=== PATIENT | female | born 1935 | race Caucasian/White ===

== ENCOUNTER 2017-10-21 17:10 | Inpatient (IN) | payer OTHER, SELFPAY ==
[~2017-10-21] VITALS: Ht 162.6 cm; Wt 79.1 kg
[~2017-10-21 17:10] MED LIST: ALLO100 PO; AMLO10 PO; ASPI81CH PO; ATOR40TA PO; CARV6.25 PO; CHOL10002 PO; COLCRYS0.6 MG PO; CYAN1000 PO; Carvedilol12.5 MG PO; NAPR500 PO; Norco 5-325 Ta1 EACH PO; PREG75 PO; Robaxin500 MG PO; TRAM50 PO; TRIHYD5075 PO; VITAMIN B122500 MCG PO
[2017-10-21 19:32] LABS: Troponin I <0.015 ng/mL (0.000-0.040)
[2017-10-21 20:41] LABS: Free Thyroxine 1.34 ng/dL (0.70-1.60)
[2017-10-21 20:43] LABS: Triiodothyronine, Free 2.48 pg/mL (2.18-3.98)
[2017-10-21 22:50] LABS: U Amphetamine Screen Not Detected; U Barbituate Screen Not Detected; U Benzodiazapine Screen Not Detected; U Buprenorphine Screen Not Detected; U Cannabinoids Screen Not Detected; U Cocaine Screen Not Detected; U Methadone Screen Not Detected; U Methamphetamine Screen Not Detected; U Opiates Screen Not Detected; U Oxycodone Screen Not Detected; U Phencyclidine Screen Not Detected; U Propoxyphene Screen Not Detected
[2017-10-22 02:38] LABS: BASOPHILS ABSOLUTE AUTO 0.02 K/mm3 (0.00-0.23); BASOPHILS PERCENT AUTO 0 % (0-2); EOSINOPHILS ABSOLUTE AUTO 0.07 K/mm3 (0.00-0.68); EOSINOPHILS PERCENT AUTO 1 % (0-6); Hematocrit 36.5 % (33.0-51.0); Hemoglobin 11.7 g/dL (11.5-16.0); IMMATURE GRAN ABSOLUTE AUTO 0.01 K/mm3 (0.00-0.10); IMMATURE GRAN PERCENT AUTO 0 % (0-1); LYMPHOCYTES ABSOLUTE AUTO 1.19 K/mm3 (0.84-5.20); LYMPHOCYTES PERCENT AUTO 18 % (21-46); MONOCYTES ABSOLUTE AUTO 0.44 K/mm3 (0.16-1.47); MONOCYTES PERCENT AUTO 7 % (4-13); Mean Corpuscular HGB 28.1 pg (26.0-34.0); Mean Corpuscular HGB Conc 32.1 g/dL (31.5-36.5); Mean Corpuscular Volume 88 fL (80-100); NEUTROPHILS ABSOLUTE AUTO 4.89 K/mm3 (1.96-9.15); NEUTROPHILS PERCENT AUTO 74 % (41-73); Platelet Count 189 K/mm3 (150-400); RDW Coefficient Variation 13.4 % (11.7-14.2); Red Blood Cell Count 4.17 M/mm3 (3.80-5.20); White Blood Cell Count 6.62 K/mm3 (4.00-11.30)
[2017-10-22 02:55] LABS: Anion Gap 8 mmol/L (6-16); Blood Urea Nitrogen 22 mg/dL (8-24); Bun/Creatinine Ratio 15.6 (12.0-20.0); CO2, Blood 29 mmol/L (21-32); Calcium, Blood 8.6 mg/dL (8.5-10.1); Chloride, Blood 108 mmol/L (98-108); Cholesterol 112 mg/dL (50-200); Creatinine, Blood 1.41 mg/dL (0.40-1.00); Glomerular Filtration Rate 38 (60-); Glucose, Blood 142 mg/dL (70-99); HDL Cholesterol 57 mg/dL (>39); LDL/HDL RATIO 0.6; Low Density Lipoprotein Chol 35 mg/dL (0-110); Phosphorus, Blood 3.7 mg/dL (2.5-4.9); Potassium, Blood 3.3 mmol/L (3.5-5.5); Sodium, Blood 145 mmol/L (136-145); Triglycerides 98 mg/dL (30-160); Very Low Density Lipoprot Chol 19 mg/dL (6-32)
[2017-10-23 05:22] LABS: Bun/Creatinine Ratio 16.4 (12.0-20.0); Calcium, Blood 8.5 mg/dL (8.5-10.1); Creatinine, Blood 1.52 mg/dL (0.40-1.00); Potassium, Blood 3.2 mmol/L (3.5-5.5)
[2017-10-23] MEDS ORDERED: FURO20 PO (14:08)
== END 2017-10-23 15:23 | disposition home or self-care (01) | DRG 304 ==
LOC: ER 17:10 → ICUE 20:04 → ICUW 20:04 → ICUE 20:55 → MEDS 10-22 18:30 → ENPENDDIS 10-23 12:00 → MEDS 10-23 15:23
PROVIDERS: Emergency Medicine; Family Medicine; Internal Medicine
DX: I16.1 Hypertensive emergency (principal); I50.31 Acute diastolic (congestive) heart failure; G62.9 Polyneuropathy, unspecified; I24.8 Other forms of acute ischemic heart disease; I11.0 Hypertensive heart disease with heart failure; E78.5 Hyperlipidemia, unspecified; E87.6 Hypokalemia; N28.9 Disorder of kidney and ureter, unspecified; Z87.891 Personal history of nicotine dependence; Z88.2 Allergy status to sulfonamides; Z88.8 Allergy status to other drugs, medicaments and biological substances; Z79.82 Long term (current) use of aspirin; Z79.899 Other long term (current) drug therapy
CPT/HCPCS: 36415; 71046; 80048; 80053; 80061; 80069; 82533; 82570; 83880; 84439; 84443; 84481; 84484; 84585; 85025; 85651; 93005; 93010; 93306; 94760; 96374; 99285; J0360; J1940

== ENCOUNTER → 2018-10-17 | Outpatient (CLI) | payer OTHER ==
[~2018-10-17] MED LIST changes: +FURO20 PO
[2018-10-17 17:59] LABS: Creatinine Urine 59.3 mg/dL (27.00-270.00)
[2018-10-17 18:32] LABS: Protein, Urine Quantitative 80.3 mg/dL (0.0-11.9)
== END | disposition home or self-care (01) ==
LOC: LAB SHORT 13:41 → LAB 13:41
PROVIDERS: Internal Medicine Nephrology
DX: N18.3 Chronic kidney disease, stage 3 (moderate) (principal); D63.1 Anemia in chronic kidney disease; R80.9 Proteinuria, unspecified
CPT/HCPCS: 81050; 82043; 82570; 84156

== ENCOUNTER → 2019-03-17 | Outpatient (CLI) | payer OTHER ==
[2019-03-17 19:16] LABS: Creatinine Urine 71.3 mg/dL (27.00-270.00); Protein, Urine Quantitative 51.4 mg/dL (0.0-11.9)
[2019-03-17 19:20] LABS: Creatinine, Urine Random 72.6 mg/dL (27.00-270.00)
[2019-03-17 19:23] LABS: Microalb/Creat Ratio UR, Rand 424.242 mg/g (0.000-30.000)
== END | disposition home or self-care (01) ==
LOC: LAB 16:29 → LAB SHORT 16:29
PROVIDERS: Internal Medicine Nephrology
DX: N18.3 Chronic kidney disease, stage 3 (moderate) (principal); D63.1 Anemia in chronic kidney disease; R80.9 Proteinuria, unspecified
CPT/HCPCS: 81050; 82043; 82570; 84156

== ENCOUNTER 2021-11-17 13:00 | Inpatient (IN) | payer OTHER ==
[~2021-11-17] VITALS: Ht 162.6 cm; Wt 68.0 kg
[2021-11-17 14:03] LABS: BASOPHILS ABSOLUTE AUTO 0.08 K/mm3 (0.00-0.23); BASOPHILS PERCENT AUTO 1 % (0-2); EOSINOPHILS ABSOLUTE AUTO 0.03 K/mm3 (0.00-0.68); EOSINOPHILS PERCENT AUTO 0 % (0-6); Hematocrit 40.7 % (33.0-51.0); Hemoglobin 12.8 g/dL (11.5-16.0); IMMATURE GRAN ABSOLUTE AUTO 0.05 K/mm3 (0.00-0.10); IMMATURE GRAN PERCENT AUTO 0 % (0-1); LYMPHOCYTES ABSOLUTE AUTO 1.48 K/mm3 (0.84-5.20); LYMPHOCYTES PERCENT AUTO 11 % (21-46); MONOCYTES ABSOLUTE AUTO 1.27 K/mm3 (0.16-1.47); MONOCYTES PERCENT AUTO 10 % (4-13); Mean Corpuscular HGB 26.9 pg (26.0-34.0); Mean Corpuscular HGB Conc 31.4 g/dL (31.5-36.5); Mean Corpuscular Volume 86 fL (80-100); Mean Platelet Volume 11.4 fL (9.1-12.4); NEUTROPHILS PERCENT AUTO 78 % (41-73); Platelet Count 273 K/mm3 (150-400); RDW Coefficient Variation 14.5 % (11.7-14.2); RDW Standard Deviation 45.9 fL (35.1-46.3); Red Blood Cell Count 4.75 M/mm3 (3.80-5.20); White Blood Cell Count 13.21 K/mm3 (4.00-11.30)
[2021-11-17 14:15] LABS: Albumin, Blood 3.8 g/dL (3.4-5.0); Bilirubin, Total 0.8 mg/dL (0.1-1.0); Creatinine, Blood 2.07 mg/dL (0.40-1.00); Globulin, Blood 3.8 g/dL (2.2-4.0); Potassium, Blood 4.7 mmol/L (3.5-5.5); Total Protein, Blood 7.6 g/dL (6.4-8.2)
[2021-11-17] MEDS ORDERED: AMLO10 PO (16:26)
[2021-11-17] MEDS ORDERED: ASPIR 8181 M1 PO (16:27)
[2021-11-17] MEDS ORDERED: ATOR10 PO (16:28)
[2021-11-17] MEDS ORDERED: COREG25 MG PO (16:29)
[2021-11-17] MEDS ORDERED: FURO20 PO (16:30)
[2021-11-17] MEDS ORDERED: LOSARTAN POTAS100 M1 PO (16:32)
[2021-11-17] MEDS ORDERED: LYRICA150 M1 PO (16:33)
--- NOTE | 2021-11-17 18:53 | NUR ---
SHIFT SUMMARY; PATIENT ARRIVED TO MED FLOOR APPROX 1700 TODAY. SHE IS AO X 4. ON 4 LITERS O2. COVID 19 POSITIVE. PATIENT HAS TWO IV'S AND ARE BOTH SALINE LOCKED. SHE AMBULATES WITHOUIT ASSIST TO BATHROOM. WILL REMAIN AVAILABLE FOR THIS PATIENT FOR ANY WANTS OR NEEDS PRIOR TO SHIFT CHANGE.
[2021-11-18 04:50] LABS: BASOPHILS ABSOLUTE AUTO 0.01 K/mm3 (0.00-0.23); BASOPHILS PERCENT AUTO 0 % (0-2); EOSINOPHILS PERCENT AUTO 0 % (0-6); Hematocrit 34.7 % (33.0-51.0); Hemoglobin 11.1 g/dL (11.5-16.0); IMMATURE GRAN ABSOLUTE AUTO 0.02 K/mm3 (0.00-0.10); IMMATURE GRAN PERCENT AUTO 0 % (0-1); LYMPHOCYTES PERCENT AUTO 14 % (21-46); MONOCYTES ABSOLUTE AUTO 0.19 K/mm3 (0.16-1.47); MONOCYTES PERCENT AUTO 4 % (4-13); Mean Corpuscular HGB 27.7 pg (26.0-34.0); Mean Corpuscular Volume 87 fL (80-100); Mean Platelet Volume 11.3 fL (9.1-12.4); NEUTROPHILS ABSOLUTE AUTO 4.21 K/mm3 (1.96-9.15); NEUTROPHILS PERCENT AUTO 82 % (41-73); Platelet Count 185 K/mm3 (150-400); RDW Coefficient Variation 14.3 % (11.7-14.2); RDW Standard Deviation 45.9 fL (35.1-46.3); Red Blood Cell Count 4.01 M/mm3 (3.80-5.20); White Blood Cell Count 5.13 K/mm3 (4.00-11.30)
--- NOTE | 2021-11-18 05:19 | NUR ---
SHIFT SUMMARY 86 YRF ADMITTED ON 11/17/21 FOR COVID. PT PRESENTED TO ED FOR SOB AND THE TESTED POSITIVE FOR COVID. SHE STATED THAT SHE HAS NEVER HAD TROUBLE BREATHING BEFORE BUT W/ 4 L ON NC SHE IS NO LONGER HAVING DIFFICULTY BREATHING. SHE STATES SHE FEELS FINE OTHER THAN THAT. SHE HAS SLEPT MOST OF THISSHIFT AND THIS NURSE HAS HAD LITTLE INTERACTION WITH HER. SHE IS PLEASANT AND COOPERATIVE AND USES THE CALL LIGHT APPROPRIATELY.
[2021-11-18 05:20] LABS: Albumin, Blood 2.9 g/dL (3.4-5.0); Albumin/Globulin Ratio 0.9 (0.8-1.8); Bilirubin, Total 0.5 mg/dL (0.1-1.0); Bun/Creatinine Ratio 15.2 (12.0-20.0); Calcium, Blood 9.2 mg/dL (8.5-10.1); Creatinine, Blood 2.17 mg/dL (0.40-1.00); Globulin, Blood 3.2 g/dL (2.2-4.0); Phosphorus, Blood 4.2 mg/dL (2.5-4.9); Potassium, Blood 4.7 mmol/L (3.5-5.5); Total Protein, Blood 6.1 g/dL (6.4-8.2)
--- NOTE | 2021-11-18 12:37 | NUR ---
Initial Interview with [facility] 1. Who did you speak with? Spoke with luda James. 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 2. What is the patient's prior level of functions? Patient lives independently and able to completed ADL's without assistance. Patient lives in a two story home, but mainly resides on the first floor. She has a couple of stairs at the entrance of the residence. Grandsons are presently visiting and will remain at the residence for a while to assist with needs. Patient is has a strong support network. Luda Arreaga assists her aunt whenever the needs arises. 3. Is the patient and/or family able to provide transportation to and from doctor's appointments and cone picker prescriptions? Patient has a [place] driver's license and owns a private vehicle 4. Does patient still drive? Yes 5. POA/PCP/NOK: NOK: Luda James [phone]/PCP [facility] Dr. Eladio Mendoza 6. Discharge goals: TBD: -DME: TBD -Medication Management: self-management -Preferred Pharmacy: [facility], [place] -Housekeeping need: patient able to cook and clean 7. List barriers to discharge: None known at this time 8. Discharge Plan: TBD 9. PCP Follow up appointment: Will be scheduled within seven calendar days of discharge 10. Other Notes: patient is not a .
--- NOTE | 2021-11-18 17:40 | NUR ---
SHIFT SUMMARY; PATIENT HAD NO ACUTE CHANGES IN CONDITION TODAY. SHE IS CURRENTLY ON 2 LITERS O2 VIA NASAL CANNULA. SHE DOES DESAT WHEN UP TO BATHROOM AND O2 IS TURNED TO 4 LITERS FOR AMBULATION. HER BLOOD PRESSURE IS ELEVATED OFF AND ON THROUGHOUT THE DAY AND IS MADE AWARE. NO NEW ORDERS RECEIVED. ORDER FOR ECHO IS RECIEVED AND NEW LABS FOR AM. FAMILY CALLS TO CHECK ON PAITENT AND THEY ARE GOING TO BE TAKING CARE OF PAITENT ON HER DISCHARGE AND WILL PICK HER UP.
--- NOTE | 2021-11-19 03:22 | NUR ---
SHIFT SUMMARY PATIENT HAD NO ACUTE CHANGES OBSERVED. AXOX 4 AND SBA TO BR. SOB W/EXERTION. ON 4L O2 NC. PIV REMAINS INTACT. DENIES CHEST PAIN, SOB, AND N/V. RT IN ROOM FOR BREATHING TX. VSS/AFEBRILE. COOPERATIVE WITH CARE. CALL LIGHT IN REACH. BED IN LOWEST POSITION. WILL CONTINUE TO MONITOR UNTIL DAY SHIFT NURSE ASSUMES CARE.
[2021-11-19 03:32] LABS: BASOPHILS PERCENT AUTO 0 % (0-2); EOSINOPHILS PERCENT AUTO 0 % (0-6); Hematocrit 33.6 % (33.0-51.0); Hemoglobin 10.5 g/dL (11.5-16.0); IMMATURE GRAN ABSOLUTE AUTO 0.03 K/mm3 (0.00-0.10); IMMATURE GRAN PERCENT AUTO 0 % (0-1); LYMPHOCYTES ABSOLUTE AUTO 0.71 K/mm3 (0.84-5.20); LYMPHOCYTES PERCENT AUTO 9 % (21-46); MONOCYTES ABSOLUTE AUTO 0.31 K/mm3 (0.16-1.47); MONOCYTES PERCENT AUTO 4 % (4-13); Mean Corpuscular HGB 27.1 pg (26.0-34.0); Mean Corpuscular HGB Conc 31.3 g/dL (31.5-36.5); Mean Corpuscular Volume 87 fL (80-100); Mean Platelet Volume 11.3 fL (9.1-12.4); NEUTROPHILS ABSOLUTE AUTO 7.08 K/mm3 (1.96-9.15); NEUTROPHILS PERCENT AUTO 87 % (41-73); Platelet Count 167 K/mm3 (150-400); RDW Coefficient Variation 14.4 % (11.7-14.2); RDW Standard Deviation 45.7 fL (35.1-46.3); Red Blood Cell Count 3.87 M/mm3 (3.80-5.20); White Blood Cell Count 8.13 K/mm3 (4.00-11.30)
[2021-11-19 04:01] LABS: Albumin, Blood 2.8 g/dL (3.4-5.0); Albumin/Globulin Ratio 0.9 (0.8-1.8); Bilirubin, Total 0.5 mg/dL (0.1-1.0); Bun/Creatinine Ratio 19.6 (12.0-20.0); C-REACTIVE PROTEIN, EXT RANGE 2.17 mg/dL (0.000-0.300); Calcium, Blood 9.1 mg/dL (8.5-10.1); Creatinine, Blood 2.3 mg/dL (0.40-1.00); Globulin, Blood 3.2 g/dL (2.2-4.0); Potassium, Blood 4.8 mmol/L (3.5-5.5)
--- NOTE | 2021-11-19 17:41 | NUR ---
PT REMAINS A/O X 4, INDEPENDENT IN HER ROOM, SHE IS REQUIRING OXYGEN AT 2LNC. HOME O2 EVAL CONDUCTED THIS AFTERNOON AND PT REQUIRES 2LNC CONTINUOUSLY, AT REST AND WITH EXCERTION. SHE IS A POSSIBLE/PROBABLE DISCHARGE TOMORROW AFTER NOON PER DR HAIR. PO HYDRALAZINE TID ADDED FOR ELEVATED BP. NO ACUTE CHANGES NOTED THIS SHIFT, WILL CONTINUE TO MONITOR AND REPORT TO ONCOMING RN.
--- NOTE | 2021-11-20 04:09 | NUR ---
SHIFT SUMMARY PATIENT HYPERTENSIVE 174/59 AT START OF SHIFT AND SCHEDULE HTN MEDS GIVEN. SECOND SET OF VITALS 147/49. AXOX 4 AND INDEPENDENT IN ROOM. ON 2L O2 NC. VSS/AFEBRILE. DENIES PAIN, SOB, AND N/V. COOPERATIVE WITH CARE. REPORTS POSSIBLE DC. CALL LIGHT IN REACH. BED IN LOWEST POSITION. WILL CONTINUE TO MONITOR UNTIL DAY SHIFT NURSE ASSUMES CARE.
[2021-11-20 06:36] LABS: BASOPHILS PERCENT AUTO 0 % (0-2); EOSINOPHILS PERCENT AUTO 0 % (0-6); Hematocrit 35.8 % (33.0-51.0); IMMATURE GRAN ABSOLUTE AUTO 0.04 K/mm3 (0.00-0.10); IMMATURE GRAN PERCENT AUTO 1 % (0-1); LYMPHOCYTES ABSOLUTE AUTO 0.99 K/mm3 (0.84-5.20); LYMPHOCYTES PERCENT AUTO 11 % (21-46); MONOCYTES ABSOLUTE AUTO 0.42 K/mm3 (0.16-1.47); MONOCYTES PERCENT AUTO 5 % (4-13); Mean Corpuscular HGB 26.8 pg (26.0-34.0); Mean Corpuscular HGB Conc 30.7 g/dL (31.5-36.5); Mean Corpuscular Volume 87 fL (80-100); Mean Platelet Volume 11.3 fL (9.1-12.4); NEUTROPHILS ABSOLUTE AUTO 7.41 K/mm3 (1.96-9.15); NEUTROPHILS PERCENT AUTO 84 % (41-73); Platelet Count 182 K/mm3 (150-400); RDW Coefficient Variation 14.3 % (11.7-14.2); RDW Standard Deviation 46.1 fL (35.1-46.3); White Blood Cell Count 8.86 K/mm3 (4.00-11.30)
[2021-11-20 07:01] LABS: Albumin, Blood 2.9 g/dL (3.4-5.0); Albumin/Globulin Ratio 0.9 (0.8-1.8); Bilirubin, Total 0.5 mg/dL (0.1-1.0); Bun/Creatinine Ratio 23.5 (12.0-20.0); Calcium, Blood 9.1 mg/dL (8.5-10.1); Creatinine, Blood 2.34 mg/dL (0.40-1.00); Globulin, Blood 3.3 g/dL (2.2-4.0); Potassium, Blood 4.7 mmol/L (3.5-5.5); Total Protein, Blood 6.2 g/dL (6.4-8.2)
--- NOTE | 2021-11-20 09:00 | NUR ---
pt laying in bed watching tv, Dr. Tipton in to see her, will be discharging her today, a/ox3, very [place], pleasant and cooperative with care, follows commands well, denies pain, lungs are dim t/o but has a harsh wet productive cough, currently on 2 liters 02 via n/c, resp even and unlabored, will be going home on 2 liters 02 per home 02 eval, hrr, no edema noted ppp+2, cap refill <3sec, vs stable, afebrile, iv site is clear and patent, btx4, abd flat soft nontender, voids without diff, skin frail but intact, maew, lon, call light in reach.
[2021-11-20] MEDS ORDERED: DECADRON6 M1 PO (09:45)
[2021-11-20] MEDS ORDERED: HYDR10 PO (09:47)
[2021-11-20] MEDS ORDERED: ALBU90OI6 INH (09:48)
[2021-11-20] MEDS ORDERED: AZIT500 PO (09:49)
[2021-11-20] MEDS ORDERED: AIRDUO RESPICL1 EAC4 INH (09:50)
--- NOTE | 2021-11-20 12:35 | NUR ---
pt has been discharged to home, family notified, o2 was ordered and delivered, iv removed intact, went over discharge instructions with pt, she verbalized understanding, new medications called into [facility]. call light in reach.
--- NOTE | 2021-11-20 13:30 | NUR ---
Pt has been dressed, ride is here to take her home. she has all her paperwork and belongings, left via wheelchair with custom studio coordinator in attendence.
--- NOTE | 2021-11-21 08:33 | NUR ---
Per Dr. Woodruff discharge appropriate. Patient and family do not oppose discharge. Patient is discharged home to residence. Date of discharge: 11/20/2021 Date of admission: 11/17/2021 Provisional diagnosis at time of admission: CHF Final Diagnosis at time of discharge: CHF Location: Patient is discharged home to his residence: [address] [place] [address] Dr. Leonie Prabhakar Transportation provided by: Family/luda James DME Ordered: Home Oxygen eval completed Sunday/Oxygen ordered on Sunday by RN Follow-ups needed: [facility] will contact patient to schedule hospital follow-up with PCP Dr. Eladio Mendoza MD Confirmed numbers: Luda James (best contact) Provider/PCP: Dr. Eladio Mendoza When: WITHIN 1 WEEK Specialty: N/A When: N/A Comment: No barriers to discharge. Patient has a strong support network.
== END 2021-11-20 13:35 | disposition home or self-care (01) | DRG 177 ==
LOC: ER 13:00 → MEDS 15:47
PROVIDERS: Hospitalist; Physician Assistant; ADMIT Family Medicine
PROC: 8E0ZXY6 Isolation (ICD-10-PCS; principal; 2021-11-17)
PROC: 3E0333Z Introduction of Anti-inflammatory into Peripheral Vein, Percutaneous Approach (ICD-10-PCS; 2021-11-17)
DX: U07.1 COVID-19 (principal); J12.82 Pneumonia due to coronavirus disease 2019; J96.01 Acute respiratory failure with hypoxia; Z66 Do not resuscitate; I13.0 Hypertensive heart and chronic kidney disease with heart failure and stage 1 through stage 4 chronic kidney disease, or unspecified chronic kidney disease; I24.8 Other forms of acute ischemic heart disease; N18.30 Chronic kidney disease, stage 3 unspecified; I50.9 Heart failure, unspecified; R73.03 Prediabetes; I73.9 Peripheral vascular disease, unspecified; G62.9 Polyneuropathy, unspecified; E78.5 Hyperlipidemia, unspecified; Z28.21 Immunization not carried out because of patient refusal; Z86.73 Personal history of transient ischemic attack (TIA), and cerebral infarction without residual deficits; Z90.49 Acquired absence of other specified parts of digestive tract; Z98.890 Other specified postprocedural states; Z88.2 Allergy status to sulfonamides; Z88.8 Allergy status to other drugs, medicaments and biological substances; Z79.82 Long term (current) use of aspirin; Z87.891 Personal history of nicotine dependence
CPT/HCPCS: 36415; 71045; 80053; 83605; 83735; 83880; 84100; 84145; 84484; 85025; 85651; 86140; 87040; 93005; 93010; 93306; 94640; 94761; 94762; 96374; 99285-25; A9270; J0696; J1100; J1644

== ENCOUNTER 2022-09-20 18:17 | Emergency (ER) | payer OTHER ==
[~2022-09-20] VITALS: Ht 162.6 cm; Wt 77.1 kg
[~2022-09-20 18:17] MED LIST changes: +AIRDUO RESPICL1 EAC4 INH; +ALBU90OI6 INH; +ASPIR 8181 M1 PO; +ATOR10 PO; +AZIT500 PO; +COREG25 MG PO; +DECADRON6 M1 PO; +HYDR10 PO; +LOSARTAN POTAS100 M1 PO; +LYRICA150 M1 PO
[2022-09-20 19:14] LABS: BASOPHILS ABSOLUTE AUTO 0.05 K/mm3 (0.00-0.23); BASOPHILS PERCENT AUTO 1 % (0-2); EOSINOPHILS ABSOLUTE AUTO 0.07 K/mm3 (0.00-0.68); EOSINOPHILS PERCENT AUTO 1 % (0-6); Hematocrit 40.8 % (33.0-51.0); Hemoglobin 13.1 g/dL (11.5-16.0); IMMATURE GRAN ABSOLUTE AUTO 0.02 K/mm3 (0.00-0.10); IMMATURE GRAN PERCENT AUTO 0 % (0-1); LYMPHOCYTES ABSOLUTE AUTO 1.01 K/mm3 (0.84-5.20); LYMPHOCYTES PERCENT AUTO 15 % (21-46); MONOCYTES ABSOLUTE AUTO 0.61 K/mm3 (0.16-1.47); MONOCYTES PERCENT AUTO 9 % (4-13); Mean Corpuscular HGB 27.9 pg (26.0-34.0); Mean Corpuscular HGB Conc 32.1 g/dL (31.5-36.5); Mean Corpuscular Volume 87 fL (80-100); Mean Platelet Volume 10.9 fL (9.1-12.4); NEUTROPHILS ABSOLUTE AUTO 4.92 K/mm3 (1.96-9.15); NEUTROPHILS PERCENT AUTO 74 % (41-73); Platelet Count 198 K/mm3 (150-400); RDW Coefficient Variation 12.8 % (11.7-14.2); RDW Standard Deviation 40.5 fL (35.1-46.3); White Blood Cell Count 6.68 K/mm3 (4.00-11.30)
[2022-09-20 19:22] LABS: Albumin, Blood 2.9 g/dL (3.4-5.0); Albumin/Globulin Ratio 0.9 (0.8-1.8); Bilirubin, Total 0.6 mg/dL (0.1-1.0); Bun/Creatinine Ratio 14.3 (12.0-20.0); Calcium, Blood 9.2 mg/dL (8.5-10.1); Creatinine, Blood 2.8 mg/dL (0.40-1.00); Globulin, Blood 3.3 g/dL (2.2-4.0); Potassium, Blood 4.7 mmol/L (3.5-5.5); Total Protein, Blood 6.2 g/dL (6.4-8.2)
[2022-09-20 23:36] LABS: Influenza A, PCR NEGATIVE (NEGATIVE); Influenza B, PCR NEGATIVE (NEGATIVE); Resp Syncytial Virus, PCR NEGATIVE (NEGATIVE); SARS-Cov-2 (COVID-19) PCR, MMC NEGATIVE (NEGATIVE)
[2022-09-21] MEDS ORDERED: ALBU90OI INH (00:15)
[2022-09-21] MEDS ORDERED: PRED20 PO (00:15)
[2022-09-21] MEDS ORDERED: BENZ100A PO (00:15)
== END 2022-09-21 01:02 | disposition home or self-care (01) ==
LOC: ER 18:17
PROVIDERS: Physician Assistant
DX: J20.9 Acute bronchitis, unspecified (principal); R73.03 Prediabetes; I12.9 Hypertensive chronic kidney disease with stage 1 through stage 4 chronic kidney disease, or unspecified chronic kidney disease; N18.30 Chronic kidney disease, stage 3 unspecified; Z87.891 Personal history of nicotine dependence; E11.51 Type 2 diabetes mellitus with diabetic peripheral angiopathy without gangrene; Z20.822 Contact with and (suspected) exposure to COVID-19
CPT/HCPCS: 0241U; 36415; 71046; 80053; 84484; 85025; 93005; 93010; 94640; 94664; A9270

== ENCOUNTER 2023-05-15 04:45 | Inpatient (IN) | payer OTHER ==
[~2023-05-15] VITALS: Ht 165.1 cm; Wt 64.8 kg
[~2023-05-15 04:45] MED LIST changes: +ALBU90OI INH; +BENZ100A PO; +PRED20 PO
[2023-05-15 05:19] LABS: BASOPHILS ABSOLUTE AUTO 0.07 K/mm3 (0.00-0.23); BASOPHILS PERCENT AUTO 1 % (0-2); EOSINOPHILS ABSOLUTE AUTO 0.08 K/mm3 (0.00-0.68); EOSINOPHILS PERCENT AUTO 1 % (0-6); Hemoglobin 11.6 g/dL (11.5-16.0); IMMATURE GRAN ABSOLUTE AUTO 0.03 K/mm3 (0.00-0.10); IMMATURE GRAN PERCENT AUTO 0 % (0-1); LYMPHOCYTES PERCENT AUTO 14 % (21-46); MONOCYTES ABSOLUTE AUTO 0.76 K/mm3 (0.16-1.47); MONOCYTES PERCENT AUTO 8 % (4-13); Mean Corpuscular HGB 28.2 pg (26.0-34.0); Mean Corpuscular HGB Conc 30.5 g/dL (31.5-36.5); Mean Corpuscular Volume 93 fL (80-100); Mean Platelet Volume 11.8 fL (9.1-12.4); NEUTROPHILS ABSOLUTE AUTO 7.84 K/mm3 (1.96-9.15); NEUTROPHILS PERCENT AUTO 77 % (41-73); Platelet Count 170 K/mm3 (150-400); RDW Coefficient Variation 14.6 % (11.7-14.2); RDW Standard Deviation 49.1 fL (35.1-46.3); Red Blood Cell Count 4.11 M/mm3 (3.80-5.20); White Blood Cell Count 10.18 K/mm3 (4.00-11.30)
[2023-05-15 05:34] LABS: Albumin, Blood 2.8 g/dL (3.4-5.0); Albumin/Globulin Ratio 0.9 (0.8-1.8); Bilirubin, Total 1.1 mg/dL (0.1-1.0); Bun/Creatinine Ratio 14.4 (12.0-20.0); Calcium, Blood 8.8 mg/dL (8.5-10.1); Creatinine, Blood 3.53 mg/dL (0.40-1.00); Potassium, Blood 5.3 mmol/L (3.5-5.5); Total Protein, Blood 5.8 g/dL (6.4-8.2)
[2023-05-15] MEDS ORDERED: AMLO10 PO (09:29)
[2023-05-15] MEDS ORDERED: ATOR10 PO (09:30)
[2023-05-15] MEDS ORDERED: COREG25 MG PO (09:32)
[2023-05-15] MEDS ORDERED: FUROSEMIDE40 MG PO (09:33)
[2023-05-15] MEDS ORDERED: LOSARTAN POTAS100 M1 PO (09:34)
[2023-05-15] MEDS ORDERED: OMEP20ER PO (09:35)
[2023-05-15] MEDS ORDERED: LYRICA150 M1 PO (09:36)
[2023-05-15] MEDS ORDERED: triamterene 75 mg-hy PO (09:37)
--- NOTE | 2023-05-15 11:00 | NUR ---
PATIENT ADMITTED TO ROOM 306 FROM ED. REPORT RECEIVED FROM ENRIQUE RAMIREZ. PATIENT A/OX4, HUSLIA. ORIENTED TO ROOM AND USE OF CALL LIGHT. 4LO2 TO MAINTAIN SATS, RA AT BASELINE. EDUCATED ABOUT SAFETY AND FALL PREVENTION. FACESHEET FAXED TO DR. COSTELLO OFFICE FOR PERMCATH PLACEMENT AND DR. BANG'S OFFICE NOTIFIED OF NEPHROLOGY CONSULT.
[2023-05-15 11:57] VITALS: BP 177/81
[2023-05-15 15:37] VITALS: BP 163/51
[2023-05-15 20:17] VITALS: BP 166/54
--- NOTE | 2023-05-15 20:31 | NUR ---
PATIENT TAKEN TO OR FOR PERMACATH PLACEMENT THIS EVENING, VSS, DR DAVISON AT BEDSIDE TO EXPLAIN AND GET CONSENT.
[2023-05-15 21:41] VITALS: BP 151/48
--- NOTE | 2023-05-15 21:49 | NUR ---
PATIENT BACK TO ROOM 306 AT 2145, VSS, PERMACATH DRESSING IN PLACE, NOTED A SMALL HEMATOMA COVERED WITH DRESSING THAT IS C/D/I. PATIENT IS ON 2LNC SATS 96%. DROWSY BUT ABLE TO ANSWER QUESTIONS APPROPRIATELY.
[2023-05-15 23:16] VITALS: BP 184/45
[2023-05-15 23:18] VITALS: BP 170/47
[2023-05-16] VITALS (17 sets, daily range): BP systolic 149–193; BP diastolic 41–101
--- NOTE | 2023-05-16 04:36 | NUR ---
SHIFT SUMMARY PAITENT IS AOX3-4. PERMACATH PLACED, WITH ORDER FOR DIALYSIS IN AM. VSS, 4L NC, SATS ABOVE 95. RESTING T/O SHIFT AND VOIDS IN BATHROOM SBA. BED ALARM IS ON FOR SAFETY. CALL LIGHT IN REACH.
[2023-05-16 04:51] LABS: BASOPHILS ABSOLUTE AUTO 0.04 K/mm3 (0.00-0.23); BASOPHILS PERCENT AUTO 1 % (0-2); EOSINOPHILS ABSOLUTE AUTO 0.03 K/mm3 (0.00-0.68); EOSINOPHILS PERCENT AUTO 1 % (0-6); Hematocrit 35.3 % (33.0-51.0); Hemoglobin 10.5 g/dL (11.5-16.0); IMMATURE GRAN ABSOLUTE AUTO 0.03 K/mm3 (0.00-0.10); IMMATURE GRAN PERCENT AUTO 1 % (0-1); LYMPHOCYTES ABSOLUTE AUTO 0.94 K/mm3 (0.84-5.20); LYMPHOCYTES PERCENT AUTO 15 % (21-46); MONOCYTES ABSOLUTE AUTO 0.53 K/mm3 (0.16-1.47); MONOCYTES PERCENT AUTO 8 % (4-13); Mean Corpuscular HGB 27.9 pg (26.0-34.0); Mean Corpuscular HGB Conc 29.7 g/dL (31.5-36.5); Mean Corpuscular Volume 94 fL (80-100); NEUTROPHILS ABSOLUTE AUTO 4.74 K/mm3 (1.96-9.15); NEUTROPHILS PERCENT AUTO 75 % (41-73); Platelet Count 152 K/mm3 (150-400); RDW Coefficient Variation 14.5 % (11.7-14.2); RDW Standard Deviation 49.7 fL (35.1-46.3); Red Blood Cell Count 3.76 M/mm3 (3.80-5.20); White Blood Cell Count 6.31 K/mm3 (4.00-11.30)
[2023-05-16 05:15] LABS: Albumin, Blood 2.5 g/dL (3.4-5.0); Anion Gap 7 mmol/L (6-16); Blood Urea Nitrogen 59 mg/dL (8-24); Bun/Creatinine Ratio 15.5 (12.0-20.0); CO2, Blood 19 mmol/L (21-32); Calcium, Blood 8.3 mg/dL (8.5-10.1); Chloride, Blood 121 mmol/L (98-108); Creatinine, Blood 3.81 mg/dL (0.40-1.00); Glomerular Filtration Rate 11 (60-); Glucose, Blood 102 mg/dL (70-99); Phosphorus, Blood 6.7 mg/dL (2.5-4.9); Potassium, Blood 5.5 mmol/L (3.5-5.5); Sodium, Blood 147 mmol/L (136-145)
--- NOTE | 2023-05-16 18:17 | NUR ---
PATIENT WENT DOWN FOR HER FIRST DIALYSIS TREATMENT AND TOLERATED WELL. B/P ELEVATED AND SCHEDULED MEDICATION GIVEN. PATIENT A/OX4, UP WITH SBA. REMAINS ON 4LO2, STARTED ON ROCEPHIN AND AZITHROMYCIN TODAY TO TREAT PNA. CONT OF URINE/STOOL. CALM AND CAOOPERATIVE WITH CARE AND CALLS APPROPRIATELY. TOLERATING DIET.
[2023-05-17] VITALS (23 sets, daily range): BP systolic 160–198; BP diastolic 41–105
[2023-05-17 04:55] LABS: BASOPHILS ABSOLUTE AUTO 0.04 K/mm3 (0.00-0.23); BASOPHILS PERCENT AUTO 1 % (0-2); EOSINOPHILS ABSOLUTE AUTO 0.08 K/mm3 (0.00-0.68); EOSINOPHILS PERCENT AUTO 2 % (0-6); Hematocrit 32.6 % (33.0-51.0); IMMATURE GRAN ABSOLUTE AUTO 0.02 K/mm3 (0.00-0.10); IMMATURE GRAN PERCENT AUTO 0 % (0-1); LYMPHOCYTES ABSOLUTE AUTO 1.15 K/mm3 (0.84-5.20); LYMPHOCYTES PERCENT AUTO 24 % (21-46); MONOCYTES PERCENT AUTO 13 % (4-13); Mean Corpuscular HGB 27.5 pg (26.0-34.0); Mean Corpuscular HGB Conc 30.7 g/dL (31.5-36.5); Mean Corpuscular Volume 90 fL (80-100); NEUTROPHILS ABSOLUTE AUTO 2.92 K/mm3 (1.96-9.15); NEUTROPHILS PERCENT AUTO 61 % (41-73); Platelet Count 140 K/mm3 (150-400); RDW Standard Deviation 45.2 fL (35.1-46.3); Red Blood Cell Count 3.64 M/mm3 (3.80-5.20); White Blood Cell Count 4.81 K/mm3 (4.00-11.30)
[2023-05-17 05:14] LABS: Magnesium, Blood 1.8 mg/dL (1.6-2.4)
[2023-05-17 05:39] LABS: Albumin, Blood 2.3 g/dL (3.4-5.0); Anion Gap 7 mmol/L (6-16); Blood Urea Nitrogen 37 mg/dL (8-24); Bun/Creatinine Ratio 13.7 (12.0-20.0); CO2, Blood 28 mmol/L (21-32); Calcium, Blood 7.9 mg/dL (8.5-10.1); Chloride, Blood 110 mmol/L (98-108); Glomerular Filtration Rate 16 (60-); Glucose, Blood 84 mg/dL (70-99); Phosphorus, Blood 3.7 mg/dL (2.5-4.9); Sodium, Blood 145 mmol/L (136-145)
--- NOTE | 2023-05-17 06:41 | NUR ---
PT IS SBA TO TOILET DUE TO O2 LINE. INCREASED O2 FROM 3 TO 4 L AT 0600 AT PT REQUEST DUE TO SOB. AO, MAC, VSS, CALLS APPROPRIATELY. PER MD PT IS EXPECTED TO BE SCHEDULED FOR DIALYSIS 2 TIMES PER WEEK OUTPATIENT. MILD PAIN REPORTED AT HD PORT SITE. FIRE SAFETY REVIEWED.
--- NOTE | 2023-05-17 07:56 | NUR ---
B/P 192/[address] SABILLON NOTIFIED AND INSTRUCTED TO GIVE ALL CARDIAC MEDS. DR. SABILLON AWARE THAT PATIENT WILL HAVE DIALYSIS THIS AM. SPOKE WITH ENRIQUE LOVE IN [facility] AND INFORMED HER OF DOCTORS ORDERS.
--- NOTE | 2023-05-17 18:17 | NUR ---
PATIENT HAD DIALYSIS TREATMENT AGAIN TODAY. B/P MEDS GIVEN PRIOR TO DILAYSIS PER DR. SABILLON, BUT PATIENT VOMITTED RIGHT AFTER AND THE PILLS WERE MOST LIKELY WASTED. B/P CAME DOWN SLIGHTLY DURING DIALYSIS. PATIENT NOT FEELING WELL AFTER DIALYSIS, STATED "I DON'T WANT TO DO THIS IF I HAVE TO FEEL THIS WAY I WOULD RATHER JUST GO." PATIENT TOLD TO SPEACK WITH HER DOCTOR IN THE MORNING AND THAT IT WAS HER CHOICE TO CONTINUE WITH DIALYSIS OR NOT. 4LO2 TO MAINTAIN SATS, VERY SOB WITH EXERTION. DUONEB GIVEN X1 WITH GOOD RELIEF. NO IV SITE IN PLACE. SKIN INTACT. POOR APPEITE TODAY. CONTINENT OF URINE/STOOL.
[2023-05-18] VITALS (16 sets, daily range): BP systolic 137–275; BP diastolic 49–139
[2023-05-18 03:10] LABS: HBSAG SCREEN Negative (Negative); HCV AB Non Reactive (Non Reactive); HEP A AB, IGM Negative (Negative); HEP B CORE AB, IGM Negative (Negative)
[2023-05-18 05:08] LABS: BASOPHILS ABSOLUTE AUTO 0.06 K/mm3 (0.00-0.23); BASOPHILS PERCENT AUTO 1 % (0-2); EOSINOPHILS ABSOLUTE AUTO 0.09 K/mm3 (0.00-0.68); EOSINOPHILS PERCENT AUTO 2 % (0-6); Hematocrit 34.5 % (33.0-51.0); Hemoglobin 10.5 g/dL (11.5-16.0); IMMATURE GRAN ABSOLUTE AUTO 0.02 K/mm3 (0.00-0.10); IMMATURE GRAN PERCENT AUTO 0 % (0-1); LYMPHOCYTES ABSOLUTE AUTO 1.58 K/mm3 (0.84-5.20); LYMPHOCYTES PERCENT AUTO 26 % (21-46); MONOCYTES ABSOLUTE AUTO 0.79 K/mm3 (0.16-1.47); MONOCYTES PERCENT AUTO 13 % (4-13); Mean Corpuscular HGB 27.5 pg (26.0-34.0); Mean Corpuscular HGB Conc 30.4 g/dL (31.5-36.5); Mean Corpuscular Volume 90 fL (80-100); Mean Platelet Volume 12.3 fL (9.1-12.4); NEUTROPHILS ABSOLUTE AUTO 3.56 K/mm3 (1.96-9.15); NEUTROPHILS PERCENT AUTO 58 % (41-73); Platelet Count 169 K/mm3 (150-400); RDW Standard Deviation 45.1 fL (35.1-46.3); Red Blood Cell Count 3.82 M/mm3 (3.80-5.20)
[2023-05-18 05:38] LABS: Albumin, Blood 2.3 g/dL (3.4-5.0); Anion Gap 5 mmol/L (6-16); Blood Urea Nitrogen 18 mg/dL (8-24); Bun/Creatinine Ratio 8.5 (12.0-20.0); CO2, Blood 33 mmol/L (21-32); Calcium, Blood 8.2 mg/dL (8.5-10.1); Chloride, Blood 105 mmol/L (98-108); Creatinine, Blood 2.12 mg/dL (0.40-1.00); Glomerular Filtration Rate 22 (60-); Glucose, Blood 72 mg/dL (70-99); Magnesium, Blood 1.8 mg/dL (1.6-2.4); Phosphorus, Blood 3.4 mg/dL (2.5-4.9); Potassium, Blood 3.4 mmol/L (3.5-5.5); Sodium, Blood 143 mmol/L (136-145)
--- NOTE | 2023-05-18 06:08 | NUR ---
SHIFT SUMMARY PT SITTING UP IN BED WITH FRANCOIS LUCIANO AT BEDSIDE - PT HYPERTENSIVE IGNITION SOURCE ASSESSED, PT DENIED SMOKING AND DENIED ANY IGNITION SOURCES - HYDRALAZINE GIVEN AT 1845 WILL CONTINUE TO MONITOR -PT TOOK SCHEDULED HS MEDS WITHOUT PROBLEMS- 00:[address] CORONADO RE: BP 206/62 GAVE ADDITIONAL DOSES OF LOSARTAN AND AMLODIPINE-PT RETURNED TO SLEEPING NO S/S DISTRESS/PPAIN 0430 PT CONTINUES TO BE HYPERTENSIVE- HYDRALAZINE PO GIVEN TO PT- WILL CONTINUE TO MONITOR- BED LOW POSITION, CALL LIGHT WITHIN REACH-
--- NOTE | 2023-05-18 13:43 | NUR ---
Pt resting in bed and is A&OX4 and denies pain at this time. She reports dyspnea has improved with the oxygen. Pt a little [place] and hears best on her right side. Engaged in therapeutic listening as Pt reports being , has children who live out of area. She reports her grandson and his girlfriend live with her and both are supportive. Listened as Pt reports not tolerating dialysis well and feels wiped out from it. She states she no longer wants dialysis. Discussed hospice and educated on hospice philosophy. Pt expresses interest in hospice option. She states she would like to speak with her grandson Scot before making any final decisions. She reports initially her niece Natalya is here healthcare proxy but would like her grandson to take that responsibility. She request that this RN does not call her niece Tamica as her son recently . Pt request this RN to call her grandson's girlfriend Barb first as grandson is still at work. Spoke with Primary RN Makenzie and discussed case. Pt requires assistance with bathing, dressing, toileting, and transfers. Pt has not been out of bed. Attempted to call [facility] and left message with request for a return phone call. Plan: Discuss hospice with family when grandson arrives to visit Pt. Palliative Care will remain available
--- NOTE | 2023-05-18 16:12 | NUR ---
ASSUMED CARE OF PT AT THIS TIME.
--- NOTE | 2023-05-18 18:28 | NUR ---
SHIFT SUMMARY PT A&OX4 AND IN PLEASENT MOOD SINCE ASSUMING CARE. CECILIA NINOLPS IN TO SEE PT W/ FAMILY AT BEDSIDE-PLAN TO PERSUE HOSPICE CARE, NO COMFORT CARE AT THIS TIME. PT VERBALIZES THAT SHE DOES NOT WANT TO DO HEMODIALYSIS ANYMORE. VSS. CALL LIGHT W/IN REACH. PT REFUSING MEALS, PROVIDED W/ NUTRITION SHAKE. FAMILY AT BEDSIDE AT THIS TIME.
--- NOTE | 2023-05-18 18:29 | NUR ---
Pt's son and his girlfriend has arrived. Met with Pt and family at bedside. Engaged in therapeutic discussion regarding Pt's wishes. Pt reports not tolerating dialysis and feels wiped out and sick from it. She reports she would like to focus on quality of life instead of longevity of life. Educated on hospice philosophy with V/U made by Pt and family. Offered therapeutic listening and answered questions. Discussed hospice agencies to choose from with Pt choosing [facility]. Pt would like to continue wearing oxygen when she goes home as she states becoming significantly SOB with exertion. Pt and family express appreciation and report no other concerns at this time. Spoke with Dr Jenkins from [facility] as hospice is closed. Dr Jenkins will have Pt scheduled for hospice admission. Pt will need oxygen when D/C. She denies any other DME at this time. Palliative Care will remain available
--- NOTE | 2023-05-18 18:35 | NUR ---
DR. BANG INFORMED OF PT WISHES TO NO LONGER PERSUE H/D, PLANS ON HOSPICE CARE
[2023-05-19 04:28] VITALS: BP 150/58
[2023-05-19 05:04] LABS: BASOPHILS ABSOLUTE AUTO 0.01 K/mm3 (0.00-0.23); BASOPHILS PERCENT AUTO 0 % (0-2); EOSINOPHILS PERCENT AUTO 0 % (0-6); Hematocrit 38.2 % (33.0-51.0); Hemoglobin 11.7 g/dL (11.5-16.0); IMMATURE GRAN ABSOLUTE AUTO 0.03 K/mm3 (0.00-0.10); IMMATURE GRAN PERCENT AUTO 1 % (0-1); LYMPHOCYTES ABSOLUTE AUTO 1.05 K/mm3 (0.84-5.20); LYMPHOCYTES PERCENT AUTO 16 % (21-46); MONOCYTES ABSOLUTE AUTO 0.34 K/mm3 (0.16-1.47); MONOCYTES PERCENT AUTO 5 % (4-13); Mean Corpuscular HGB 27.4 pg (26.0-34.0); Mean Corpuscular HGB Conc 30.6 g/dL (31.5-36.5); Mean Corpuscular Volume 90 fL (80-100); Mean Platelet Volume 12.2 fL (9.1-12.4); NEUTROPHILS ABSOLUTE AUTO 5.02 K/mm3 (1.96-9.15); NEUTROPHILS PERCENT AUTO 78 % (41-73); Platelet Count 176 K/mm3 (150-400); RDW Coefficient Variation 13.9 % (11.7-14.2); RDW Standard Deviation 44.8 fL (35.1-46.3); Red Blood Cell Count 4.27 M/mm3 (3.80-5.20); White Blood Cell Count 6.45 K/mm3 (4.00-11.30)
--- NOTE | 2023-05-19 06:10 | NUR ---
SHIFT SUMMARY PT SITTING UP IN BED VISITING WITH GRANDTU LUCIANO AND - IGNITION ASSESSMENT DONE- PT AND FAMILY DENIED HAVING ANY IGNITION ITEMS PT DENIED PAIN/SOB - PT TOOK SCHEDULED HS MEDS WITHOUT PROBLEMS, PT ON 4L O2- PT USED CALL LIGHT AND WANTED TO KNOW IF THE [facility] IS GOING TO TAKE HER PERMA CATH OUT SINCE SHE IS NO LONGER GOING TO HAVE DIALYSIS- WILL PASS ON TO DAYSHIFT TO HAVE THE [facility] COME TALK TO PT RE: REMOVING- PT SLEPT T/O NIGHT WITHOUT COMPLAINTS- BED LOW POSITION, CALL LIGHT WITHIN REACH
[2023-05-19 06:36] LABS: Alanine Aminotransfer (ALT/SGP 13 U/L (12-78); Albumin, Blood 2.6 g/dL (3.4-5.0); Albumin/Globulin Ratio 0.9 (0.8-1.8); Alk Phos 68 U/L (50-136); Anion Gap 9 mmol/L (6-16); Aspartate Aminotrans (AST/SGOT 12 U/L (12-37); Bilirubin, Total 0.5 mg/dL (0.1-1.0); Blood Urea Nitrogen 31 mg/dL (8-24); Bun/Creatinine Ratio 11.7 (12.0-20.0); CO2, Blood 30 mmol/L (21-32); Calcium, Blood 8.3 mg/dL (8.5-10.1); Chloride, Blood 100 mmol/L (98-108); Creatinine, Blood 2.66 mg/dL (0.40-1.00); Globulin, Blood 2.8 g/dL (2.2-4.0); Glomerular Filtration Rate 17 (60-); Glucose, Blood 173 mg/dL (70-99); Magnesium, Blood 2.3 mg/dL (1.6-2.4); Phosphorus, Blood 5.5 mg/dL (2.5-4.9); Sodium, Blood 139 mmol/L (136-145); Total Protein, Blood 5.4 g/dL (6.4-8.2)
[2023-05-19 07:24] VITALS: BP 137/61
[2023-05-19 14:57] VITALS: BP 149/48
--- NOTE | 2023-05-19 18:09 | NUR ---
DISCHARGE SUMMARY PT DISCHARGED TO HOME ON HOSPICE. PT EDUCATED ON ALL DISCHARGE INSTRUCTIONS, ALL QUESTIONS ANSWERED. PT LEFT ON 4L O2 VIA NC. NO IV IN PLACE AT TIME OF DC. MEPILEX TO UPPER RIGHT CHEST CDI. PT LEFT ROOM JUST PRIOR TO THIS NOTE IN WHEELCHAIR WITH FELT CUTTER ESCORT.
== END 2023-05-19 17:58 | disposition hospice, home (50) | DRG 291 ==
LOC: ER 04:45 → MEDS 09:11
PROVIDERS: Internal Medicine Nephrology; Student in an Organized Health Care Education/Training Program; ADMIT Family Medicine
PROC: 0JH63XZ Insertion of Tunneled Vascular Access Device into Chest Subcutaneous Tissue and Fascia, Percutaneous Approach (ICD-10-PCS; principal; 2023-05-15)
PROC: 02HV33Z Insertion of Infusion Device into Superior Vena Cava, Percutaneous Approach (ICD-10-PCS; 2023-05-15)
PROC: B548ZZA Ultrasonography of Superior Vena Cava, Guidance (ICD-10-PCS; 2023-05-15)
PROC: B518ZZA Fluoroscopy of Superior Vena Cava, Guidance (ICD-10-PCS; 2023-05-15)
PROC: 5A1D70Z Performance of Urinary Filtration, Intermittent, Less than 6 Hours Per Day (ICD-10-PCS; 2023-05-15)
PROC: 02PY33Z Removal of Infusion Device from Great Vessel, Percutaneous Approach (ICD-10-PCS; 2023-05-19)
PROC: 0JPT3XZ Removal of Tunneled Vascular Access Device from Trunk Subcutaneous Tissue and Fascia, Percutaneous Approach (ICD-10-PCS; 2023-05-19)
DX: I13.2 Hypertensive heart and chronic kidney disease with heart failure and with stage 5 chronic kidney disease, or end stage renal disease (principal); I50.33 Acute on chronic diastolic (congestive) heart failure; J96.01 Acute respiratory failure with hypoxia; N18.6 End stage renal disease; E87.0 Hyperosmolality and hypernatremia; E87.20 Acidosis, unspecified; Z66 Do not resuscitate; E87.8 Other disorders of electrolyte and fluid balance, not elsewhere classified; I48.91 Unspecified atrial fibrillation; D63.1 Anemia in chronic kidney disease; E87.5 Hyperkalemia; E11.51 Type 2 diabetes mellitus with diabetic peripheral angiopathy without gangrene; E11.42 Type 2 diabetes mellitus with diabetic polyneuropathy; I25.10 Atherosclerotic heart disease of native coronary artery without angina pectoris; E11.22 Type 2 diabetes mellitus with diabetic chronic kidney disease; N18.30 Chronic kidney disease, stage 3 unspecified; M51.36 Other intervertebral disc degeneration, lumbar region; E78.5 Hyperlipidemia, unspecified; M48.061 Spinal stenosis, lumbar region without neurogenic claudication; Z88.2 Allergy status to sulfonamides; Z88.8 Allergy status to other drugs, medicaments and biological substances; Z79.82 Long term (current) use of aspirin; Z79.899 Other long term (current) drug therapy; Z79.2 Long term (current) use of antibiotics; Z86.73 Personal history of transient ischemic attack (TIA), and cerebral infarction without residual deficits; Z90.49 Acquired absence of other specified parts of digestive tract; Z98.890 Other specified postprocedural states; Z87.891 Personal history of nicotine dependence; Z99.2 Dependence on renal dialysis
CPT/HCPCS: 36415; 71045; 76937; 80053; 80069; 80074; 83036; 83735; 83880; 84145; 85025; 93005; 93010; 93306; 94640; 94664; 94760; 96365; 96366; 96367; 99152; 99153; 99285-25; A9270; C1750; C1769; C1894; J0456; J0696; J1644; J2250; J2930; J3010; J7030; J7050